=== PATIENT | male | born 1940 | race Caucasian/White ===

== ENCOUNTER 2017-04-22 07:45 | Day surgery (SDC) | payer MEDICARE, OTHER ==
[2017-04-22] MEDS ORDERED: fentaNYL 100 MCG/2 ML SDV ONE (08:09)
[2017-04-22] MEDS ORDERED: Propofol 200 MG/20 ML SDV ONE (08:09)
[2017-04-22] MEDS ORDERED: Sodium Chloride 0.9% 1,000 ML IV SCH (08:30)
--- NOTE | 2017-04-22 11:35 | OR ---
DATE OF PROCEDURE: 04/22/2017 PROCEDURE: Colonoscopy. FINDINGS: Normal colonoscopy (no diverticulosis, no mass, no old or new blood). COMPLICATIONS: None. DOOR SERVICEMAN: None. ANESTHESIA: MAC. PREOPERATIVE DIAGNOSIS: Positive FIT test. POSTOPERATIVE DIAGNOSIS: Positive FIT test. RISKS: Risks, benefits, alternatives, limitations including, but not limited to infection, bleeding, and perforation were explained to the patient, who wished to proceed. PROCEDURE IN DETAIL: The patient was placed in left lateral decubitus position. Digital rectal exam was performed without abnormality. The scope was introduced and advanced atraumatically to the ileocecal valve. The scope was brought back to the ascending, transverse, descending colon, and retroflexed. No evidence of old or new blood. No diverticulosis. No masses. No colitis. The patient tolerated the procedure well. Maykel Mackenzie MD /[id number]
[2017-04-22 11:55] VITALS: BP 110/66
== END 2017-04-22 11:50 | disposition home or self-care (01) ==
LOC: JP.SDS 07:45
PROVIDERS: ATTEND Surgery
DX: R19.5 Other fecal abnormalities (principal); K21.9 Gastro-esophageal reflux disease without esophagitis; E03.9 Hypothyroidism, unspecified; R73.9 Hyperglycemia, unspecified
CPT/HCPCS: 45378; J2704; J3010; J7040

== ENCOUNTER 2019-06-11 06:48 | Inpatient (IN) | payer MEDICARE, OTHER ==
[2019-06-11] MEDS ORDERED: Nozin Nasal Sanitizer NASBOTH ONE (07:15)
[2019-06-11] MEDS ORDERED: Povidone-Iodine 10% Soln 118.25 ML Bottle ONE ×2 (07:56→14:48)
[2019-06-11] MEDS ORDERED: Lactated Ringers 1,000 ML IV SCH (08:00)
[2019-06-11] MEDS ORDERED: Tranexamic Acid 1,000 MG in Sodium Chloride 0.9% 50 ML IV ONE (08:30)
[2019-06-11] MEDS ORDERED: ceFAZolin 2 GM in Premix Bag 1 BAG IV ONE ×2 (08:30→15:00)
[2019-06-11] MEDS ORDERED: Tranexamic Acid 1,000 MG in Sodium Chloride 0.9% 50 ML IV PRN (11:00)
[2019-06-11] MEDS ORDERED: Propofol 200 MG/20 ML SDV ONE ×2 (14:50→14:52)
[2019-06-11] MEDS ORDERED: fentaNYL 100 MCG/2 ML SDV ONE (14:51)
[2019-06-11] MEDS ORDERED: Midazolam 1 MG/ML 2 ML SDV ONE (14:51)
[2019-06-11] MEDS ORDERED: Bupivacaine 0.5% 30 ML SDV ONE (15:31)
[2019-06-11] MEDS ORDERED: Hydrocortisone Sodium Succinate 100 MG/2 ML SDV ONE (16:01)
[2019-06-11] MEDS ORDERED: Lactated Ringers 1,000 ML ONE (16:14)
[2019-06-11] MEDS ORDERED: Acetaminophen 325 MG Tab PO PRN (17:14)
[2019-06-11] MEDS: Tranexamic Acid 1,000 MG in Sodium Chloride 0.9% 50 ML IV SCH ×2 (18:19→18:20)
[2019-06-11] MEDS: Acetaminophen/oxyCODONE 325-5 MG Tab PO PRN ×2 (19:47→23:53)
[2019-06-11] MEDS: Sodium Chloride 0.9% 1,000 ML IV SCH (19:56)
[2019-06-11] MEDS ORDERED: Non-Formulary Medication 1 Each (Cyclosporine [Restasis] 1 EACH) OP SCH (21:00)
[2019-06-11] MEDS: Docusate Sodium 100 MG Cap PO SCH (21:54)
[2019-06-11] MEDS: Morphine 2 MG/ML Syringe IVPUSH PRN (21:55)
[2019-06-11] MEDS: RESTASIS 0.05% EYEBOTH SCH (22:00)
[2019-06-11] MEDS ORDERED: ceFAZolin 1 GM in Sodium Chloride 0.9% 50 ML IV SCH (23:00)
[2019-06-12] MEDS: Morphine 2 MG/ML Syringe IVPUSH PRN ×2 (01:03→15:46)
[2019-06-12] MEDS: Ondansetron 4 MG/2 ML SDV IVPUSH PRN ×2 (01:15→08:08)
[2019-06-12] MEDS: Sodium Chloride 0.9% 1,000 ML IV SCH ×3 (04:06→21:09)
[2019-06-12] MEDS: Acetaminophen/oxyCODONE 325-5 MG Tab PO PRN ×2 (04:07→08:07)
[2019-06-12] MEDS: Pantoprazole 40 MG Tab.CR PO SCH (07:43)
[2019-06-12] MEDS: Levothyroxine 25 MCG Tab PO SCH (08:21)
[2019-06-12] MEDS: Docusate Sodium 100 MG Cap PO SCH ×2 (08:29→20:31)
[2019-06-12] MEDS: Loratadine 10 MG Tab PO SCH (08:29)
[2019-06-12] MEDS: Aspirin 81 MG Tab.EC PO SCH (08:30)
[2019-06-12] MEDS: Folic Acid 1 MG Tab PO SCH (08:30)
[2019-06-12] MEDS: Furosemide 20 MG Tab PO SCH (08:30)
[2019-06-12] MEDS: RESTASIS 0.05% EYEBOTH SCH ×2 (08:32→20:29)
--- NOTE | 2019-06-12 08:48 | CR ---
Knee 1V or 2V Rt CLINICAL HISTORY: Postop FINDINGS: Patient is status post total right knee arthroplasty. Components appear well seated. There is intra-articular and subcutaneous air Impression: Status post recent 3 component total knee arthroplasty
[2019-06-12] MEDS ORDERED: SAW PALMETTO 320 MG PO SCH ×2 (09:00)
[2019-06-12] MEDS ORDERED: Enoxaparin 30 MG/0.3 ML Syringe SUBCUT SCH (09:00)
[2019-06-12] MEDS: Enoxaparin 30 MG/0.3 ML Syringe SUBCUT SCH (09:48)
[2019-06-12] MEDS: ceFAZolin 1 GM in Premix Bag 1 BAG IV SCH ×2 (09:48→15:48)
[2019-06-12] MEDS: Magnesium Hydroxide 400 MG/5 ML Susp 30 ML Cup PO PRN (11:54)
[2019-06-12] MEDS: Acetaminophen/HYDROcodone 325-5 MG Tab PO PRN ×4 (13:58→23:30)
[2019-06-12] MEDS ORDERED: Scopolamine 1.5 MG Transdermal Patch TRDERM PRN (15:18)
[2019-06-12] MEDS: Nozin Nasal Sanitizer NASBOTH SCH (21:37)
[2019-06-12] MEDS: Calcium Carbonate 500 MG Tab.Chew PO PRN (22:49)
[2019-06-13] MEDS: Acetaminophen/HYDROcodone 325-5 MG Tab PO PRN ×3 (02:31→08:58)
[2019-06-13] MEDS: Sodium Chloride 0.9% 1,000 ML IV SCH (05:15)
[2019-06-13] MEDS: Levothyroxine 25 MCG Tab PO SCH (08:01)
[2019-06-13] MEDS: Aspirin 81 MG Tab.EC PO SCH (08:02)
[2019-06-13] MEDS: Furosemide 20 MG Tab PO SCH (08:02)
[2019-06-13] MEDS: Pantoprazole 40 MG Tab.CR PO SCH (08:02)
[2019-06-13] MEDS: Loratadine 10 MG Tab PO SCH (08:03)
[2019-06-13] MEDS: Docusate Sodium 100 MG Cap PO SCH ×2 (08:03→21:46)
[2019-06-13] MEDS: Enoxaparin 30 MG/0.3 ML Syringe SUBCUT SCH (08:03)
[2019-06-13] MEDS: Folic Acid 1 MG Tab PO SCH (08:03)
[2019-06-13] MEDS: Nozin Nasal Sanitizer NASBOTH SCH ×2 (08:03→21:46)
[2019-06-13] MEDS: Ondansetron 4 MG/2 ML SDV IVPUSH PRN (08:58)
[2019-06-13] MEDS ORDERED: Methotrexate 2.5 MG Tab PO SCH (09:00)
[2019-06-13] MEDS: VERIFY SCOP PATCH TOP SCH (09:07)
[2019-06-13] MEDS: RESTASIS 0.05% EYEBOTH SCH ×2 (09:07→21:44)
[2019-06-13] MEDS: Calcium Carbonate 500 MG Tab.Chew PO PRN (09:12)
[2019-06-13] MEDS: traMADol 50 MG Tab PO PRN ×3 (13:32→22:48)
[2019-06-13] MEDS: Magnesium Hydroxide 400 MG/5 ML Susp 30 ML Cup PO PRN (22:48)
[2019-06-14] MEDS: traMADol 50 MG Tab PO PRN ×2 (03:14→07:24)
[2019-06-14] MEDS: Pantoprazole 40 MG Tab.CR PO SCH (07:27)
[2019-06-14] MEDS: Levothyroxine 25 MCG Tab PO SCH (07:28)
[2019-06-14] MEDS: Nozin Nasal Sanitizer NASBOTH SCH (08:34)
[2019-06-14] MEDS: Aspirin 81 MG Tab.EC PO SCH (08:35)
[2019-06-14] MEDS: Docusate Sodium 100 MG Cap PO SCH (08:35)
[2019-06-14] MEDS: Enoxaparin 30 MG/0.3 ML Syringe SUBCUT SCH (08:35)
[2019-06-14] MEDS: Folic Acid 1 MG Tab PO SCH (08:35)
[2019-06-14] MEDS: Loratadine 10 MG Tab PO SCH (08:35)
[2019-06-14] MEDS: Furosemide 20 MG Tab PO SCH (08:35)
[2019-06-14] MEDS: RESTASIS 0.05% EYEBOTH SCH (08:36)
[2019-06-14] MEDS: VERIFY SCOP PATCH TOP SCH (08:37)
[2019-06-14] MEDS ORDERED: Bisacodyl 10 MG Supp RECTAL ONE (09:45)
[2019-06-14 11:03] VITALS: BP 126/58; PULSE 72
--- NOTE | 2019-06-25 19:31 | OR ---
DATE OF PROCEDURE: 06/11/2019 SURGEON: Rogelio Shell MD PREOPERATIVE DIAGNOSIS: Osteoarthritis, right knee. POSTOPERATIVE DIAGNOSIS: Osteoarthritis, right knee. PROCEDURES: Right total knee arthroplasty using Jul[employer] Person[employer] components. ANESTHESIA: Spinal with sedation. INDICATIONS: Mr. Wooten is a very pleasant 79-year-old gentleman with history of progressive pain in both knees over the past year. He has failed conservative treatment. Examination and x-ray are consistent with end-stage osteoarthritis of both knees. He now presents for right total knee arthroplasty. The patient is at slightly higher risk of infection due to use of a disease modifying agent and immunosuppression therapy. He has now been off that for several weeks and is in a safe window to proceed with surgical intervention. This has been coordinated with his other physicians. Risks, benefits, potential complications of procedure were discussed. DESCRIPTION OF PROCEDURE: After adequate anesthesia was obtained, patient was placed supine with a tourniquet about the right upper thigh. Right leg was prepped and draped in sterile fashion. Leg was exsanguinated and tourniquet inflated to 300 mmHg. A longitudinal incision was made over the anterior aspect of the knee, carried down through the subcutaneous tissues. Hemostasis was obtained with electrocautery. A medial parapatellar arthrotomy was performed. Patella was partially everted and posterior aspect was resected with an oscillating saw. A moderate amount of synovitis was present. End- stage disease noted primarily in the medial compartment. The knee was flexed. Intramedullary canal was entered with a drill and the intramedullary guide was placed for the distal cutting block. This was secured and distal cut was made. The extramedullary tibial alignment guide was then aligned and secured. The proximal tibia was resected with an oscillating saw. Medial and lateral menisci were excised. The femur was then sized and the appropriate cutting jig secured to the distal femur. Remaining bone cuts were then made. Trial femoral component was placed and an intramedullary notch cut was made for a posterior cruciate- sacrificing component. Peg holes were drilled. The tibia was then sized. Tibial plate with trial insert was placed and the knee was taken thru a range of motion. The plate was secured in this position and remaining tibial preparation was completed. The trials were then utilized, and knee was well balanced. The trials were removed. The knee was then thoroughly irrigated with pulse lavage. The bone surfaces were dried and components were cemented in place. Excess cement was removed. The knee was held in full extension with the trial insert as the cement cured. This showed some lateral patellar tracking and a lateral release was performed. Knee is well balanced in flexion and extension and full extension was obtained. Trial was removed. The knee was irrigated once again. The final tibial polyethylene was then snapped into position. Knee was irrigated again, which is followed by a dilute Betadine solution, which was left in place for 2-1/2 minutes. This was then irrigated. Knee was then irrigated with tranexamic acid solution. Tourniquet was released and hemostasis was obtained with electrocautery. Knee was irrigated once again with remaining tranexamic acid to prevent further bleeding, and knee was closed with #2 Ethibond in interrupted fashion in the capsule, 2-0 Vicryl and running 3-0 Monocryl. Steri-Strips were applied. A RAYMOND negative pressure dressing was then applied. Knee was wrapped with sterile cast padding and an George bandage and light compression. The patient tolerated the procedure very well. There were no complications. He was taken from the operating room in stable condition. Rogelio Shell MD /[id number]
== END 2019-06-14 13:25 | DRG 470 ==
LOC: JP.SDS 06:48 → JP.MS 06:48 → EDSTATUS 09:30 → JP.MS 18:11
PROVIDERS: ADMIT Specialist; ATTEND Specialist
PROC: 0SRC0J9 Replacement of Right Knee Joint with Synthetic Substitute, Cemented, Open Approach (ICD-10-PCS; principal; 2019-06-11)
DX: M17.11 Unilateral primary osteoarthritis, right knee (principal); E78.5 Hyperlipidemia, unspecified; K21.9 Gastro-esophageal reflux disease without esophagitis
CPT/HCPCS: 36415; 73560-26-RT; 73560-RT; 80048; 82962; 85027; 86850; 86900; 86901; 97110-GP; 97116-GP; 97162-GP; 97165-GO; 97530-GP; 97535-GP; A9270-GY; C1713; C1776; J0690; J1650; J1720; J2250; J2270; J2405; J2704; J3010; J3490; J7030; J7050; J7120; J8610

== ENCOUNTER 2021-09-12 19:17 | Emergency (ER) | payer MEDICARE, OTHER ==
[2021-09-12 20:49] LABS: TROPONIN I HIGH SENSITIVITY 8.1 pg/mL (<=60.3)
[2021-09-12] MEDS ORDERED: Apixaban 5 MG Tab PO ONE (21:38)
[2021-09-12 21:39] VITALS: PULSE 65
[2021-09-12 22:42] VITALS: BP 109/76
== END 2021-09-12 22:42 | disposition home or self-care (01) ==
LOC: JP.ED 19:17
DX: I48.3 Typical atrial flutter (principal); K21.9 Gastro-esophageal reflux disease without esophagitis; E03.9 Hypothyroidism, unspecified; Z87.891 Personal history of nicotine dependence; Z88.8 Allergy status to other drugs, medicaments and biological substances; Z88.6 Allergy status to analgesic agent; Z79.899 Other long term (current) drug therapy; Z79.82 Long term (current) use of aspirin
CPT/HCPCS: 36415; 80053; 84484; 85025; 93005; 99285; A9270; 93010; 99284